=== PATIENT | female | born 1985 | race African-American/Black ===

== ENCOUNTER 2017-11-21 01:25 | Emergency (ER) | payer MEDICAID ==
[~2017-11-21] VITALS: Ht 170.2 cm; Wt 68.9 kg
[~2017-11-21 01:25] MED LIST: NKM; NORCO 5-325 TA1 EACH ORAL; ONDANSETRON ODT4 MG ORAL; PENICILLIN V P500 MG PO; RANITIDINE HCL150 MG ORAL; ULTRAM50 MG ORAL; ZANTAC150 MG ORAL; ZITHROMAX250 MG ORAL; ZOFRAN ODT4 MG ORAL
[2017-11-21 01:40] VITALS: BP 128/88
[2017-11-21] MEDS ORDERED: KEFLEX500 MG ORAL (01:58)
[2017-11-21 02:12] VITALS: BP 128/88
--- NOTE | 2017-11-22 06:45 | Emergency Room Report ---
History of Present Illness General Chief Complaint: Back Pain-No Injury Source: Patient Present Illness HPI 32-year-old male presents ED for evaluation. Patient is burning sensation to her upper back x2 days. States there are "pinworms" crawling out of her back. Pain is burning, 8/10, nonradiating. Denies any flank pain. Denies any dysuria or hematuria. Denies any nausea or vomiting. No other aggravating or relieving factors. Denies any other assocatied symptoms Allergies: Coded Allergies: No Known Allergies (Unverified , 07/08/13) Patient History Past Medical History: GERD Past Surgical History: none Pertinent Family History: none Social History: Denies: smoking, alcohol use, drug use Last Menstrual Period: oct 30 Now: No : 3 Para: 2 Immunizations: UTD Reviewed Nursing Documentation: PMH: Agreed, PSxH: Agreed Nursing Documentation-PMH Hx Cardiac Problems: Yes - HEART MURMUR Hx Gastrointestinal Problems: Yes - Gastritis Review of Systems All Other Systems: negative except mentioned in HPI Physical Exam Vital Signs Date Time Temp Pulse Resp B/P (MAP) Pulse Ox O2 Delivery O2 Flow Rate FiO2 11/21/17 01:31 98.0 95 18 128/88 98 Room Air 98.1 Sp02 EP Interpretation: reviewed, normal General Appearance: no apparent distress, alert, GCS 15, non-toxic Head: normocephalic Eyes: bilateral eye normal inspection, bilateral eye PERRL ENT: normal ENT inspection Neck: normal inspection Respiratory: normal inspection Cardiovascular #1: normal inspection Gastrointestinal: normal inspection Rectal: deferred Genitourinary: no CVA tenderness Musculoskeletal: normal inspection Neurologic: alert, oriented x3, responsive, motor strength/tone normal, sensory intact, speech normal Psychiatric: judgement/insight normal, memory normal, no suicidal/homicidal ideation, anxious Skin: rash - erythema/induration to mid upper back Lymphatic: normal inspection Medical Decision Making Diagnostic Impression: Primary Impression: Cellulitis Qualified Codes: L03.90 - Cellulitis, unspecified ER Course Hospital Course 32-year-old female presents to ED with redness, pain to back Differential diagnoses include: Cellulitis, dermatitis, insect bite, abscess Clinical course Patient placed on stretcher. After initial history, physical exam reveals a female in no acute distress. On exam there is a site for mild erythema and induration to the mid upper back. There is no fluctuance. There is no tenderness. I asked patient why she believes there are pinworms in her back. She says "I don't know I just looked it up on my phone". I do believe there is a psychiatric component to patient's symptoms. However given the induration and erythema renal treat as cellulitis and prescribed antibiotics Diagnosis - cellulitis stable and discharged to home with prescription for Keflex. Instructed to followup with PMD. Instructed return to ED if symptoms recur or worsen Last Vital Signs Date Time Temp Pulse Resp B/P (MAP) Pulse Ox O2 Delivery O2 Flow Rate FiO2 11/21/17 02:12 98.1 18 128/88 98 Room Air 98.1 11/21/17 01:31 95 Status: improved Disposition: HOME, SELF-CARE Condition: Stable Scripts Cephalexin* (KEFLEX*) 500 Mg Capsule 500 MG ORAL Q6H, #28 CAP 0 Refills Prov: LUCY CASAS M.D. 11/21/17 Referrals: [facility],REFERRING (PCP) Patient Instructions: Insect Bite, [id number] LUCY CASAS M.D. Nov 22, 2017 06:45
== END 2017-11-21 02:11 | disposition home or self-care (01) ==
LOC: EMR 02:06
DX: L03.90 Cellulitis, unspecified (principal); R01.1 Cardiac murmur, unspecified; K21.9 Gastro-esophageal reflux disease without esophagitis
CPT/HCPCS: 99283

== ENCOUNTER 2017-12-14 11:10 | Emergency (ER) | payer MEDICAID ==
[~2017-12-14] VITALS: Ht 172.7 cm; Wt 52.2 kg
[~2017-12-14 11:10] MED LIST changes: +KEFLEX500 MG ORAL
[2017-12-14 11:44] VITALS: BP 111/89
[2017-12-14 12:49] LABS: ANION GAP 5 mmol/L (5-15); BLOOD UREA NITROGEN 17 mg/dL (7-18); CALCIUM 9.7 MG/DL (8.5-10.1); CARBON DIOXIDE 38 MMOL/L (21-32); CHLORIDE 93 MMOL/L (98-107); CREATININE 1.1 MG/DL (0.55-1.30); POTASSIUM 3.8 MMOL/L (3.5-5.1); SODIUM 136 MMOL/L (136-145)
[2017-12-14 12:53] LABS: ALANINE AMINOTRANSFERASE 15 U/L (12-78); ALBUMIN 3.5 G/DL (3.4-5.0); ALBUMIN/GLOBULIN RATIO 0.7 (1.0-2.7); ALKALINE PHOSPHATASE 99 U/L (46-116); ASPARTATE AMINO TRANSFERASE 15 U/L (15-37); BILIRUBIN,TOTAL 0.7 MG/DL (0.2-1.0)
[2017-12-14 13:01] LABS: BASOPHILS % (AUTO) 1.7 % (0.0-2.0); EOSINOPHILS % (AUTO) 0.2 % (0.0-3.0); HEMATOCRIT 48.1 % (37.0-47.0); HEMOGLOBIN 15.8 G/DL (12.0-16.0); LYMPHOCYTES % (AUTO) 24.4 % (20.0-45.0); MEAN CORPUSCULAR VOLUME 89 FL (80-99); MONOCYTES % (AUTO) 6.4 % (1.0-10.0); NEUTROPHILS % (AUTO) 67.3 % (45.0-75.0); PLATELET COUNT 314 K/UL (150-450); RED BLOOD COUNT 5.44 M/UL (4.20-5.40); RED CELL DISTRIBUTION WIDTH 12.6 % (11.6-14.8); WHITE BLOOD COUNT 6.1 K/UL (4.8-10.8)
[2017-12-14 13:45] LABS: APPEARANCE,URINE CLOUDY; BILIRUBIN, URINE NEGATIVE (NEGATIVE); GLUCOSE, URINE (UA) NEGATIVE (NEGATIVE); KETONES,URINE 4+ (NEGATIVE); LEUKOCYTE ESTERASE ,URINE 3+ (NEGATIVE); NITRITE,URINE NEGATIVE (NEGATIVE); PH,URINE 7 (4.5-8.0); PROTEIN,URINE 2+ (NEGATIVE); UROBILINOGEN,URINE 4 MG/DL (0.0-1.0)
--- NOTE | 2017-12-14 13:46 | Emergency Room Report ---
History of Present Illness General Chief Complaint: Vomiting Source: Patient Present Illness [facility] The patient presents with vomiting for 5 days. She has weakness at this time. She denies any blood hematemesis or coffee grounds. She felt feverish but no documented temperature. She denies any diarrhea, melena or hematochezia. The patient denies dysuria. She is not taking any medication. She does not believe she is at this time. She has a h/o gastritis. This feels somewhat like that. Pain rated 5-8/10, burning, epigastric, not radiating. Not in RUQ. No chest pain, cough, extremity pain. Allergies: Coded Allergies: No Known Allergies (Unverified , 07/08/13) Patient History Past Medical History: see triage record Past Surgical History: other - ectopic Social History: Denies: alcohol use Social History Narrative with sig other, has child Last Menstrual Period: last month Reviewed Nursing Documentation: PMH: Agreed, PSxH: Agreed Nursing Documentation-PMH Hx Cardiac Problems: Yes - HEART MURMUR Hx Gastrointestinal Problems: Yes - Gastritis Review of Systems All Other Systems: negative except mentioned in HPI Physical Exam Vital Signs Date Time Temp Pulse Resp B/P (MAP) Pulse Ox O2 Delivery O2 Flow Rate FiO2 12/14/17 11:14 97.9 110 16 116/87 99 Room Air 97.9 Sp02 EP Interpretation: reviewed, normal General Appearance: no apparent distress, GCS 15, thin Head: normocephalic Eyes: bilateral eye normal inspection, bilateral eye PERRL ENT: dry mucus membranes Neck: supple Respiratory: lungs clear, normal breath sounds Cardiovascular #1: regular rate, rhythm Cardiovascular #2: 2+ radial (R) Gastrointestinal: normal inspection, normal bowel sounds, no mass, non- distended, no guarding, no rebound, tenderness - Epigastric pain Musculoskeletal: back normal, gait/station normal, normal range of motion Neurologic: alert, oriented x3, grossly normal Psychiatric: mood/affect normal Skin: normal inspection, warm/dry Medical Decision Making Diagnostic Impression: Primary Impression: Acute pancreatitis Qualified Codes: K85.90 - Acute pancreatitis without necrosis or infection, unspecified Additional Impressions: Dehydration Contraction alkalosis Substance abuse AMA ER Course Patient presents with vomiting and epigastric pain. Differential includes gastritis, gastroenteritis, pancreatitis, peptic ulcer disease, gallstones amongst others. The patient will be evaluated with laboratory. The patient will be treated with IV hydration, Pepcid, and Zofran. Labs are significant for elevated lipase and bicarbonate. White count is normal. Patient has pyuria and antibiotics are begun. She is improved however still needs IV hydration and evaluation of the pancreatitis. Abdomen is still soft. She has been sleeping. Patient was discussed with Dr. Herrera. She initially refused to go to [facility]. She states that her physician is at [facility]. Discussing risks of , she decided to be transferred to [facility] and to continue treatment. Patient improved with treatment. (Tox screen late return.) Apparently after I left the department, she signed out AMA. Laboratory Tests Test 12/14/17 12:20 12/14/17 13:11 White Blood Count 6.1 K/UL (4.8-10.8) Red Blood Count 5.44 M/UL (4.20-5.40) H Hemoglobin 15.8 G/DL (12.0-16.0) Hematocrit 48.1 % (37.0-47.0) H Mean Corpuscular Volume 89 FL (80-99) Mean Corpuscular Hemoglobin 29.1 PG (27.0-31.0) Mean Corpuscular Hemoglobin Concent 32.9 G/DL (32.0-36.0) Red Cell Distribution Width 12.6 % (11.6-14.8) Platelet Count 314 K/UL (150-450) Mean Platelet Volume 7.7 FL (6.5-10.1) Neutrophils (%) (Auto) 67.3 % (45.0-75.0) Lymphocytes (%) (Auto) 24.4 % (20.0-45.0) Monocytes (%) (Auto) 6.4 % (1.0-10.0) Eosinophils (%) (Auto) 0.2 % (0.0-3.0) Basophils (%) (Auto) 1.7 % (0.0-2.0) Prothrombin Time 10.7 SEC (9.30-11.50) Prothrombin Time INR 1.0 (0.9-1.1) PTT 29 SEC (23-33) Sodium Level 136 MMOL/L (136-145) Potassium Level 3.8 MMOL/L (3.5-5.1) Chloride Level 93 MMOL/L (98-107) L Carbon Dioxide Level 38 MMOL/L (21-32) H Anion Gap 5 mmol/L (5-15) Blood Urea Nitrogen 17 mg/dL (7-18) Creatinine 1.1 MG/DL (0.55-1.30) Estimate Glomerular Filtration Rate > 60 mL/min (>60) Glucose Level 115 MG/DL (74-106) H Calcium Level 9.7 MG/DL (8.5-10.1) Total Bilirubin 0.7 MG/DL (0.2-1.0) Aspartate Amino Transferase (AST) 15 U/L (15-37) Alanine Aminotransferase (ALT) 15 U/L (12-78) Alkaline Phosphatase 99 U/L (46-116) Total Protein 8.3 G/DL (6.4-8.2) H Albumin 3.5 G/DL (3.4-5.0) Globulin 4.8 g/dL Albumin/Globulin Ratio 0.7 (1.0-2.7) L Lipase 647 U/L (73-393) H Urine Color Yellow Urine Appearance Cloudy Urine pH 7 (4.5-8.0) Urine Specific [place] 1.015 (1.005-1.035) Urine Protein 2+ (NEGATIVE) H Urine Glucose (UA) Negative (NEGATIVE) Urine Ketones 4+ (NEGATIVE) H Urine Occult Blood 1+ (NEGATIVE) H Urine Nitrite Negative (NEGATIVE) Urine Bilirubin Negative (NEGATIVE) Urine Urobilinogen 4 MG/DL (0.0-1.0) H Urine Leukocyte Esterase 3+ (NEGATIVE) H Urine RBC 2-4 /HPF (0 - 2) H Urine WBC Tntc /HPF (0 - 2) H Urine Squamous Epithelial Cells Many /LPF (NONE/OCC) H Urine Bacteria Moderate /HPF (NONE) H Urine HCG, Qualitative Negative Urine Opiates Screen Negative (NEGATIVE) Urine Barbiturates Screen Negative (NEGATIVE) Phencyclidine (PCP) Screen Negative (NEGATIVE) Urine Amphetamines Screen Positive (NEGATIVE) H Urine Benzodiazepines Screen Negative (NEGATIVE) Urine Cocaine Screen Negative (NEGATIVE) Urine Marijuana (THC) Screen Negative (NEGATIVE) Last Vital Signs Date Time Temp Pulse Resp B/P (MAP) Pulse Ox O2 Delivery O2 Flow Rate FiO2 12/14/17 18:19 97.9 88 14 111/89 100 Room Air 97.9 Status: improved Disposition: AGAINST MEDICAL ADVICE Condition: Serious - Stable for transfer Referrals: [facility],REFERRING (PCP) Nasir Rosales M.D. Dec 14, 2017 13:46
[2017-12-14 13:51] LABS: COLOR,URINE YELLOW
[2017-12-14] MEDS ORDERED: cefTRIAXone 1 GM in NS 55 ML IVPB ONE (14:15)
[2017-12-14 18:19] VITALS: BP 111/89
== END 2017-12-14 18:16 | disposition other institution (70) ==
LOC: EMR 12:15
DX: K85.90 Acute pancreatitis without necrosis or infection, unspecified (principal); E86.0 Dehydration; E87.3 Alkalosis; F19.10 Other psychoactive substance abuse, uncomplicated
CPT/HCPCS: 36415; 80053; 80307; 81003; 81025; 83690; 85025; 85610; 85730; 87086; 96361; 96374; 96375; 99284; J0696; J2405; S0028

== ENCOUNTER 2017-12-18 13:00 | Emergency (ER) | payer MEDICAID ==
[~2017-12-18] VITALS: Ht 172.7 cm; Wt 59.0 kg
--- NOTE | 2017-12-18 13:30 | Emergency Room Report ---
History of Present Illness General Chief Complaint: Pain Source: Patient, Medical Record (TANISHA KERR M.D.) Present Illness HPI 32-year-old female presents with right-sided burning pain for 4 days. States cold air makes it worse, he or hot water improved the symptoms. Feels like "it' s my nerve pain." No associated nausea, vomiting, diarrhea. No change in urine or stool color. No history of gallbladder disease. Endorses no BM for 3-4 days Patient was here 2 days ago had elevated lipase on labs however left AMA before transfer to [facility] for admission for pancreatitis. Patient denies EtOH, history of gallstones. Smoke cigarettes, denies other drug use. No other previous abdominal or pelvic surgery. (TANISHA KERR M.D.) Allergies: Coded Allergies: No Known Allergies (Unverified , 07/08/13) Patient History Past Medical History: none Past Surgical History: none Pertinent Family History: none Social History: Reports: smoking Last Menstrual Period: 11/25/17 Now: No Immunizations: UTD Reviewed Nursing Documentation: PMH: Agreed, PSxH: Agreed (TANISHA KERR M.D.) Nursing Documentation-PMH Hx Cardiac Problems: Yes - HEART MURMUR Hx Gastrointestinal Problems: Yes - Gastritis (TANISHA KERR M.D.) Review of Systems All Other Systems: negative except mentioned in HPI (TANISHA KERR M.D.) Physical Exam Vital Signs Date Time Temp Pulse Resp B/P (MAP) Pulse Ox O2 Delivery O2 Flow Rate FiO2 12/18/17 13:08 98.0 92 18 132/84 98 Room Air 98.1 Sp02 EP Interpretation: reviewed, normal General Appearance: normal inspection, well appearing, no apparent distress, alert, GCS 15, non-toxic Head: normocephalic, atraumatic Eyes: bilateral eye PERRL, bilateral eye EOMI ENT: normal ENT inspection, hearing grossly normal, normal pharynx, no angioedema, normal voice, TMs + canals normal, uvula midline, moist mucus membranes Neck: normal inspection, full range of motion, supple, thyroid normal, no meningismus, no bony tend Respiratory: normal inspection, lungs clear, normal breath sounds, no rhonchi, no respiratory distress, no retraction, no accessory muscle use, no wheezing, speaking full sentences Cardiovascular #1: regular rate, rhythm, no edema, no JVD, normal capillary refill Gastrointestinal: normal inspection, normal bowel sounds, soft, no mass, no peritonitis, non-distended, no guarding, no hernia, no pulsatile mass, other - mild epigastric ttp. Multiple excoriations and calamine lotion applied to right side of abdomen/chest Genitourinary: no CVA tenderness Musculoskeletal: normal inspection, back normal, normal range of motion, no calf tenderness, pelvis stable, Uzma's Sign negative Neurologic: normal inspection, alert, oriented x3, responsive, technical sales support manager III-XII nml as tested, motor strength/tone normal, cerebellar normal, normal gait, speech normal Psychiatric: normal inspection, judgement/insight normal, mood/affect normal, no suicidal/homicidal ideation, no delusions Skin: normal inspection, normal color, no rash Lymphatic: normal inspection, no adenopathy (TANISHA KERR M.D.) Medical Decision Making Diagnostic Impression: Primary Impression: abdominal pain Additional Impressions: SBO (small bowel obstruction) Trichomonal infection ER Course VSS, afebrile Mild epigastric abd pain Labs from 2 days ago show elevated lipase, however other LFTs are normal Urine was grossly infected, U tox positive for meth Labs, CT pending at time of endorsement to Dr Steiner at 230pm (TANISHA KERR M.D.) ER Course CAT scan report noting small bowel obstruction Patient states that she has not had a bowel movement in 4 days however is passing some gas yesterday Patient's vitals are normal, stable for transfer to outside hospital due to insurance purposes I gave signout to Dr. Quiros, who has accepted patient for transfer Pt passed time limit of two hours, will admit here to [place] Dr Rainey contacted from [facility] Dr Murray [facility] called said there was a bed for xfer Patient pending transfer to other facility, however patient became very angry. said she wants to eat. I calmly told her that I do not advise that as she has an SBO I told her that her condition could have serious morbidity if it worsened, she understands but still wants to eat states "I have been eating for the last few days and I have been fine" Patient continues to be very agitated/angry She storemd out of the emergency room, and left AMA (she previously left AMA few days ago) Laboratory Tests Test 12/18/17 13:45 12/18/17 13:54 Urine Color Yellow Urine Appearance Slightly cloudy Urine pH 8 (4.5-8.0) Urine Specific [place] 1.010 (1.005-1.035) Urine Protein 1+ (NEGATIVE) H Urine Glucose (UA) Negative (NEGATIVE) Urine Ketones 1+ (NEGATIVE) H Urine Occult Blood 1+ (NEGATIVE) H Urine Nitrite Negative (NEGATIVE) Urine Bilirubin Negative (NEGATIVE) Urine Urobilinogen 8 MG/DL (0.0-1.0) H Urine Leukocyte Esterase 3+ (NEGATIVE) H Urine RBC 2-4 /HPF (0 - 2) H Urine WBC 10-15 /HPF (0 - 2) H Urine Squamous Epithelial Cells Moderate /LPF (NONE/OCC) H Urine Bacteria Few /HPF (NONE) Urine Trichomonas Few /HPF (NONE) H White Blood Count 8.0 K/UL (4.8-10.8) Red Blood Count 4.51 M/UL (4.20-5.40) Hemoglobin 13.1 G/DL (12.0-16.0) Hematocrit 39.8 % (37.0-47.0) Mean Corpuscular Volume 88 FL (80-99) Mean Corpuscular Hemoglobin 29.1 PG (27.0-31.0) Mean Corpuscular Hemoglobin Concent 32.9 G/DL (32.0-36.0) Red Cell Distribution Width 12.8 % (11.6-14.8) Platelet Count 367 K/UL (150-450) Mean Platelet Volume 6.7 FL (6.5-10.1) Neutrophils (%) (Auto) 67.8 % (45.0-75.0) Lymphocytes (%) (Auto) 23.4 % (20.0-45.0) Monocytes (%) (Auto) 6.6 % (1.0-10.0) Eosinophils (%) (Auto) 0.5 % (0.0-3.0) Basophils (%) (Auto) 1.8 % (0.0-2.0) Sodium Level 134 MMOL/L (136-145) L Potassium Level 3.5 MMOL/L (3.5-5.1) Chloride Level 97 MMOL/L (98-107) L Carbon Dioxide Level 34 MMOL/L (21-32) H Anion Gap 3 mmol/L (5-15) L Blood Urea Nitrogen 8 mg/dL (7-18) Creatinine 0.9 MG/DL (0.55-1.30) Estimate Glomerular Filtration Rate > 60 mL/min (>60) Glucose Level 101 MG/DL (74-106) Calcium Level 9.0 MG/DL (8.5-10.1) Total Bilirubin 0.7 MG/DL (0.2-1.0) Aspartate Amino Transferase (AST) 14 U/L (15-37) L Alanine Aminotransferase (ALT) 13 U/L (12-78) Alkaline Phosphatase 94 U/L (46-116) Total Protein 7.6 G/DL (6.4-8.2) Albumin 3.1 G/DL (3.4-5.0) L Globulin 4.5 g/dL Albumin/Globulin Ratio 0.7 (1.0-2.7) L Lipase 92 U/L (73-393) (Jaxon Steiner M.D.) CT/MRI/US Diagnostic Results CT/MRI/US Diagnostic Results : Imaging Test Ordered: ct abdo pelvis Impression Findings: Evaluation of the GI tract is limited in the absence of enteric contrast administration. There is a small amount of free pelvic fluid. Most of the small bowel is somewhat prominent to borderline dilated, diffusely fluid-filled. However, some nondilated small bowel loops are seen in the pelvis. No definite transition point is demonstrated.. The appendix is not identified, but no findings to suggest acute appendicitis are evident. No free intraperitoneal air. The gastric wall is diffusely thickened, but this is likely an artifact of under distention. The liver, gallbladder, bile ducts, pancreas, spleen, adrenals, kidneys are unremarkable. No pelvic mass or adenopathy. Uterus demonstrates a small cyst in the myometrium. Myometrium is somewhat prominent and diffusely heterogeneous. No adnexal mass. The included lung bases are clear. The bones are unremarkable. Impression: Limited assessment of the GI tract, given absence of enteric contrast administration Prominent fluid-filled small bowel loops. Suspect on the basis of mild enteritis changes or ileus however, the presence of some nondilated small bowel loops does raise concern for early/partial small bowel obstruction. Small amount of free pelvic fluid, most likely physiologic Findings discussed by phone with Dr. Steiner in the emergency room at the time of interpretation (Jaxon Steiner M.D.) Last Vital Signs Date Time Temp Pulse Resp B/P (MAP) Pulse Ox O2 Delivery O2 Flow Rate FiO2 12/18/17 13:08 98.0 92 18 132/84 98 Room Air 98.1 Status: improved (TANISHA KERR M.D.) Disposition: AGAINST MEDICAL ADVICE Condition: Serious TANISHA KERR M.D. Dec 18, 2017 13:30 Jaxon Steiner M.D. Dec 18, 2017 15:40
[2017-12-18 14:04] LABS: BASOPHILS % (AUTO) 1.8 % (0.0-2.0); EOSINOPHILS % (AUTO) 0.5 % (0.0-3.0); HEMATOCRIT 39.8 % (37.0-47.0); HEMOGLOBIN 13.1 G/DL (12.0-16.0); LYMPHOCYTES % (AUTO) 23.4 % (20.0-45.0); MEAN CORPUSCULAR VOLUME 88 FL (80-99); MONOCYTES % (AUTO) 6.6 % (1.0-10.0); NEUTROPHILS % (AUTO) 67.8 % (45.0-75.0); PLATELET COUNT 367 K/UL (150-450); RED BLOOD COUNT 4.51 M/UL (4.20-5.40); RED CELL DISTRIBUTION WIDTH 12.8 % (11.6-14.8)
[2017-12-18 14:09] VITALS: BP 132/84
[2017-12-18] MEDS: Ketorolac 30mg Inj IV ONE (14:11)
[2017-12-18 14:18] LABS: ANION GAP 3 mmol/L (5-15); BLOOD UREA NITROGEN 8 mg/dL (7-18); CARBON DIOXIDE 34 MMOL/L (21-32); CHLORIDE 97 MMOL/L (98-107); CREATININE 0.9 MG/DL (0.55-1.30); POTASSIUM 3.5 MMOL/L (3.5-5.1); SODIUM 134 MMOL/L (136-145)
[2017-12-18 14:22] LABS: ALANINE AMINOTRANSFERASE 13 U/L (12-78); ALBUMIN 3.1 G/DL (3.4-5.0); ALBUMIN/GLOBULIN RATIO 0.7 (1.0-2.7); ALKALINE PHOSPHATASE 94 U/L (46-116); ASPARTATE AMINO TRANSFERASE 14 U/L (15-37); BILIRUBIN,TOTAL 0.7 MG/DL (0.2-1.0)
[2017-12-18 14:31] LABS: APPEARANCE,URINE SLIGHTLY CLOUDY; BILIRUBIN, URINE NEGATIVE (NEGATIVE); GLUCOSE, URINE (UA) NEGATIVE (NEGATIVE); KETONES,URINE 1+ (NEGATIVE); LEUKOCYTE ESTERASE ,URINE 3+ (NEGATIVE); NITRITE,URINE NEGATIVE (NEGATIVE); PH,URINE 8 (4.5-8.0); PROTEIN,URINE 1+ (NEGATIVE); UROBILINOGEN,URINE 8 MG/DL (0.0-1.0)
[2017-12-18 14:39] LABS: COLOR,URINE YELLOW
--- NOTE | 2017-12-18 15:00 | Diagnostic Imaging Report ---
Clinical Indication: Abdominal pain Technique: No oral contrast utilized, per emergency room physician request IV administration nonionic contrast. Venous phase spiral acquisition obtained through the abdomen and pelvis. Multiplanar reconstructions were generated. Total dose length product 670.63 mGycm. CTDIvol(s) 13.21 mGy. Dose reduction achieved using automated exposure control Comparison: none Findings: Evaluation of the GI tract is limited in the absence of enteric contrast administration. There is a small amount of free pelvic fluid. Most of the small bowel is somewhat prominent to borderline dilated, diffusely fluid-filled. However, some nondilated small bowel loops are seen in the pelvis. No definite transition point is demonstrated.. The appendix is not identified, but no findings to suggest acute appendicitis are evident. No free intraperitoneal air. The gastric wall is diffusely thickened, but this is likely an artifact of under distention. The liver, gallbladder, bile ducts, pancreas, spleen, adrenals, kidneys are unremarkable. No pelvic mass or adenopathy. Uterus demonstrates a small cyst in the myometrium. Myometrium is somewhat prominent and diffusely heterogeneous. No adnexal mass. The included lung bases are clear. The bones are unremarkable. Impression: Limited assessment of the GI tract, given absence of enteric contrast administration Prominent fluid-filled small bowel loops. Suspect on the basis of mild enteritis changes or ileus however, the presence of some nondilated small bowel loops does raise concern for early/partial small bowel obstruction. Small amount of free pelvic fluid, most likely physiologic Findings discussed by phone with Dr. Steiner in the emergency room at the time of interpretation The CT scanner at [facility] is accredited by the [employer] and the scans are performed using protocols designed to limit radiation exposure to as low as reasonably achievable to attain images of sufficient resolution adequate for diagnostic evaluation.
[2017-12-18] MEDS: Morphine Sulfate 4mg/ml Inj IVP ONE (16:13)
[2017-12-18 16:52] VITALS: BP 135/80
[2017-12-18 19:30] VITALS: BP 135/80
--- NOTE | 2017-12-19 15:45 | Consultation ---
DATE OF CONSULTATION: 12/19/2017 INTERNAL MEDICINE CONSULTATION CONSULTING PHYSICIAN: Milan Murray M.D. HISTORY OF PRESENT ILLNESS: This is a 32-year-old female, who was seen yesterday in the emergency room. I was asked to evaluate the patient for admission. The patient presented with right-sided burning pain for 4 days. She had lower abdominal pain and she reports that she has not had a bowel movement for several days. The patient had been seen in the past here, but had left AMA. There is no history of alcohol use. The patient smokes tobacco. PAST MEDICAL HISTORY: Notable for cardiac murmur and gastritis. HOME MEDICATION: Reviewed and reconciled. REVIEW OF SYSTEMS: The patient denies any headaches, hematemesis, or melena. PHYSICAL EXAMINATION: GENERAL: Reveals a 32-year-old female. HEENT: Unremarkable. . ABDOMEN: Soft. EXTREMITIES: There is no edema. NEUROLOGIC: Nonfocal. . LABORATORY DATA: Lab testing from several days ago showed liver lipase. There was evidence of urinary tract infection and there was also urine toxicology for methamphetamines. CT of the abdomen was obtained, which showed small bowel obstruction. At this point, I evaluated the patient and notes that she is stable for transfer. I have contacted the on-call case hardener who would be arranging a bed for the patient at an outside facility which is contracted with our hospital. Milan Murray M.D. DR: KAMAR JOB#: [id number] CC:
== END 2017-12-18 19:33 | disposition left against medical advice (07) ==
LOC: EMR 15:00
DX: K56.609 Unspecified intestinal obstruction, unspecified as to partial versus complete obstruction (principal); A59.9 Trichomoniasis, unspecified; F17.200 Nicotine dependence, unspecified, uncomplicated; Z87.19 Personal history of other diseases of the digestive system
CPT/HCPCS: 36415; 74177; 80053; 81003; 83690; 85025; 87086; 96374; 96375; 99284; J1885; J2270; Q9967

== ENCOUNTER 2017-12-24 05:26 | Emergency (ER) | payer MEDICAID ==
[~2017-12-24] VITALS: Ht 172.7 cm; Wt 72.6 kg
[2017-12-24] MEDS ORDERED: NKM (05:29)
[2017-12-24 05:44] VITALS: BP 141/75
[2017-12-24] MEDS ORDERED: Morphine Sulfate 4mg/ml Inj IVP ONE ×2 (05:45→10:15)
--- NOTE | 2017-12-24 06:01 | Emergency Room Report ---
History of Present Illness General Chief Complaint: Abdominal Pain Source: Medical Record (LUCY CASAS M.D.) Present Illness HPI 32-year-old female presents ED for evaluation. Patient brought in by EMS complaining of abdominal pain for the last 2 hours, sharp, 8 out of 10, nonradiating. Denies nausea or vomiting. States she was here last week for similar pain. Was told that she had a "blockage" and was to be admitted. Patient left AMA because she did not want to go to that particular hospital. Patient states that was a mistake and she should not have left. The pain has not resolved since. Last bowel movement was several weeks ago. Denies chest pain or shortness of breath. No other aggravating relieving factors. Denies any other associated symptoms (LUCY CASAS M.D.) Allergies: Coded Allergies: No Known Allergies (Unverified , 07/08/13) Patient History Past Medical History: GERD Past Surgical History: none Pertinent Family History: none Social History: Denies: smoking, alcohol use, drug use Last Menstrual Period: 12/22/17 Now: No : 3 Para: 1 Immunizations: UTD Reviewed Nursing Documentation: PMH: Agreed, PSxH: Agreed (LUCY CASAS M.D.) Nursing Documentation-PMH Hx Cardiac Problems: Yes - HEART MURMUR Hx Gastrointestinal Problems: Yes - Gastritis (LUCY CASAS M.D.) Review of Systems All Other Systems: negative except mentioned in HPI (LUCY CASAS M.D.) Physical Exam Vital Signs Date Time Temp Pulse Resp B/P (MAP) Pulse Ox O2 Delivery O2 Flow Rate FiO2 12/24/17 05:26 97.5 124 14 141/75 97 Room Air 97.5 Sp02 EP Interpretation: reviewed, normal General Appearance: no apparent distress, alert, GCS 15, non-toxic Head: normocephalic, atraumatic Eyes: bilateral eye normal inspection, bilateral eye PERRL ENT: hearing grossly normal, normal pharynx, no angioedema, normal voice Neck: full range of motion, supple/symm/no masses Respiratory: chest non-tender, lungs clear, normal breath sounds, speaking full sentences Cardiovascular #1: regular rate, rhythm, no edema Cardiovascular #2: 2+ carotid (R), 2+ carotid (L), 2+ radial (R), 2+ radial (L) , 2+ dorsalis pedis (R), 2+ dorsalis pedis (L) Gastrointestinal: normal bowel sounds, soft, non-distended, no guarding, no rebound, tenderness Rectal: deferred Genitourinary: normal inspection, no CVA tenderness Musculoskeletal: back normal, gait/station normal, normal range of motion, non- tender Neurologic: alert, oriented x3, responsive, motor strength/tone normal, sensory intact, speech normal Psychiatric: judgement/insight normal, memory normal, mood/affect normal, no suicidal/homicidal ideation Reflexes: 3+ bicep (R), 3+ bicep (L), 3+ tricep (R), 3+ tricep (L), 3+ knee (R) , 3+ knee (L) Skin: normal color, no rash, warm/dry, well hydrated Lymphatic: no adenopathy (LUCY CASAS M.D.) Medical Decision Making Diagnostic Impression: Primary Impression: abdominal pain Additional Impression: Gastritis ER Course Patient currently stable at bedside Patient states that she has a history of gastric ulcer, pain has been controlled with morphine, Pepcid, Zofran CT performed, may be partial small bowel obstruction versus anatomic abnormality that is chronic, there is distal contrast in the colon. Patient continues to have some pain. Will admit to [facility] Patient will be transferred to outside hospital, [facility], due to insurance purposes. I spoke with who has accepted patient for transfer (Jaxon Steiner M.D.) ER Course Patient signed out to me by Dr Steiner Suspected partial SBO, gastritis Already endorsed for transfer Multiple visits here and subsequent elopement in the last few weeks Patient asked for tylenol/motrin and was given, but then started loudly yelling , cursing. I spent considerable time trying to diffuse the situation even after patient told me to "suck my motherfucking asshole." I explained to patient her diagnosis multiple times and that its important for her to be NPO in case of surgery She somehow got someone to bring her a large coffee with whip cream and a large juice She blames [facility] for being transferred on previous visits to hospital far from her house. States she was happy that she was being transferred today to somewhere closer. She then stated she didnt want tylenol and was given IV morphine Patient then apologized for her behavior and appeared more calm 10 minutes later, after getting additional morphine, patient asked nurse to remove IV, states she doesn't want to stay here, admits she's one to go outside and smoke a cigarette and "get stuck from a car" and "talk to my outside ". Told patient we can't allow her to go outside with IV and come back in. Patient very angry walking up and down the hallway, disrupting the ER. Disrupting additional patients in the ER. States she "wants to leave" and "is tired of waiting for ambulance" however EMS transport is here to take her. Patient verbally threatened to harm me and staff multiple times. [employer] was called. Patient had IV removed, refused to sign AMA paperwork Hospital security saw patient get in someone's car and drive away (TANISHA KERR M.D.) CT/MRI/US Diagnostic Results CT/MRI/US Diagnostic Results : Imaging Test Ordered: CT ABDO PELVIS Impression Findings: The stomach is well distended by contrast. The gastric wall is definitely edematous and thickened. Somewhat prominent nodes are seen in the lesser sac and peripancreatic region, more prominent than on the prior study. Small bowel loops are overall prominent in caliber, with some mildly dilated small bowel in the left upper quadrant with some areas of nondistended small bowel particularly in the pelvis. Contrast is seen to traverse the entirety of the small bowel and reaches the terminal ileum. The ascending colon is mildly distended and fluid-filled. The transverse and proximal descending colon are upper limits of normal in caliber and gas filled with some stool. The distal descending colon tapers to normal caliber or collapsed. There is mostly collapsed of the sigmoid colon with intermittent areas of distention by gas. Caliber changes of the colon are more striking than on the prior exam, and the proximal colon is more distended There are intermittently collapsed small bowel loops in the pelvis adjacent to the cecum and sigmoid, and possibly tethered small bowel loop in the right lower pelvis anterior uterus. There is complex architecture of the sigmoid colon. There is increased free intraperitoneal fluid, both in the pelvis and adjacent to the tip of the liver. No colonic wall thickening, mural gas, small bowel wall thickening, or free intraperitoneal gas demonstrated. The gallbladder demonstrates a gallstone, not definitely evident previously. It is mildly distended but the wall is not thickened. No biliary ductal dilatation. The liver, pancreas, spleen, adrenals, left kidney are unremarkable. A lucency in the upper pole of the right kidney may represent a small cyst or scar. No retroperitoneal or mesenteric mass or adenopathy. No pelvic mass or adenopathy. The included lung bases are clear. The bones are unremarkable. Impression: Marked gastric wall thickening and edema, consistent with gastritis and/or peptic ulcer disease. In retrospect possibly evident previously, thought then to represent artifact of under distention but definitely significantly increased since prior study. New or increasing lesser sac and peripancreatic adenopathy, likely reactive secondary to such Mildly dilated left upper quadrant small bowel loops and intermittently normal caliber and collapsed small bowel loops in the pelvis, does raise the possibility of partial small bowel obstruction. However, reversal of contrast as far distally as the terminal ileum suggested no significant obstructive pathology is present. Complex architecture of the left upper pelvic mesentery and associated small bowel and sigmoid colon. Not clearly evident on previous CT without enteric contrast. Suspect that this is just baseline for this patient, particularly, as mentioned earlier, contrast reaches the terminal ileum suggesting absence of significant obstructive pathology, but the possibility of an unusual internal hernia resulting in mild small bowel and or distal colonic obstruction should be considered. Follow- up abdominal plain radiographs would be useful to confirm continued forward progress of ingested contrast Slightly distended fluid-filled proximal colon, more so than previously, possibly secondary to the above or could indicate diarrhea or mild colitis changes. There is no colon wall thickening, however Increased free intraperitoneal fluid, likely related to the above pathology Cholelithiasis, not clearly evident previously Incidental finding right upper pole renal cyst or scar Findings discussed by phone with Dr. Steiner in the emergency room at the time of interpretation (Jaxon Steiner M.D.) Last Vital Signs Date Time Temp Pulse Resp B/P (MAP) Pulse Ox O2 Delivery O2 Flow Rate FiO2 12/24/17 05:44 97.5 110 14 141/75 97 Room Air 97.5 (LUCY CASAS M.D.) Status: improved (TANISHA KERR M.D.) Disposition: AGAINST MEDICAL ADVICE Condition: Serious LUCY CASAS M.D. Dec 24, 2017 06:01 Jaxon Steiner M.D. Dec 24, 2017 11:25 TANISHA KERR M.D. Dec 24, 2017 16:24
[2017-12-24 06:15] LABS: EOSINOPHILS % (AUTO) 0.6 % (0.0-3.0); HEMATOCRIT 37.3 % (37.0-47.0); HEMOGLOBIN 12.7 G/DL (12.0-16.0); LYMPHOCYTES % (AUTO) 19.2 % (20.0-45.0); MEAN CORPUSCULAR VOLUME 87 FL (80-99); MONOCYTES % (AUTO) 5.9 % (1.0-10.0); NEUTROPHILS % (AUTO) 72.1 % (45.0-75.0); PLATELET COUNT 267 K/UL (150-450); RED BLOOD COUNT 4.29 M/UL (4.20-5.40); RED CELL DISTRIBUTION WIDTH 12.8 % (11.6-14.8); WHITE BLOOD COUNT 8.1 K/UL (4.8-10.8)
[2017-12-24 06:16] LABS: BASOPHILS % (AUTO) 2.1 % (0.0-2.0)
[2017-12-24 06:17] LABS: ANION GAP 4 mmol/L (5-15); BLOOD UREA NITROGEN 14 mg/dL (7-18); CALCIUM 8.9 MG/DL (8.5-10.1); CARBON DIOXIDE 31 MMOL/L (21-32); CHLORIDE 98 MMOL/L (98-107); CREATININE 0.8 MG/DL (0.55-1.30); SODIUM 133 MMOL/L (136-145)
[2017-12-24] MEDS ORDERED: Gastrograffin 30ml ORAL ONE (06:20)
[2017-12-24 06:22] LABS: ALANINE AMINOTRANSFERASE 18 U/L (12-78); ALBUMIN 2.6 G/DL (3.4-5.0); ALBUMIN/GLOBULIN RATIO 0.5 (1.0-2.7); ALKALINE PHOSPHATASE 105 U/L (46-116); ASPARTATE AMINO TRANSFERASE 45 U/L (15-37); BILIRUBIN,TOTAL 0.9 MG/DL (0.2-1.0)
[2017-12-24 07:27] VITALS: BP 124/84
[2017-12-24] MEDS ORDERED: Dicyclomine HCl 10mg/5ml oral soln ORAL ONE (10:45)
[2017-12-24] MEDS ORDERED: Lidocaine 2% Visc 15ml soln ORAL ONE (10:45)
[2017-12-24] MEDS ORDERED: Mylanta II UD 30ml ORAL ONE (10:45)
--- NOTE | 2017-12-24 11:04 | Diagnostic Imaging Report ---
Clinical Indication: Abdominal pain and distention Technique: Patient ingested oral contrast. IV administration nonionic contrast. Venous phase spiral acquisition obtained through the abdomen and pelvis. Multiplanar reconstructions were generated. Total dose length product 650.49 mGycm. CTDIvol(s) 12.1 mGy. Dose reduction achieved using automated exposure control Comparison: 12/18/2017 Findings: The stomach is well distended by contrast. The gastric wall is definitely edematous and thickened. Somewhat prominent nodes are seen in the lesser sac and peripancreatic region, more prominent than on the prior study. Small bowel loops are overall prominent in caliber, with some mildly dilated small bowel in the left upper quadrant with some areas of nondistended small bowel particularly in the pelvis. Contrast is seen to traverse the entirety of the small bowel and reaches the terminal ileum. The ascending colon is mildly distended and fluid-filled. The transverse and proximal descending colon are upper limits of normal in caliber and gas filled with some stool. The distal descending colon tapers to normal caliber or collapsed. There is mostly collapsed of the sigmoid colon with intermittent areas of distention by gas. Caliber changes of the colon are more striking than on the prior exam, and the proximal colon is more distended There are intermittently collapsed small bowel loops in the pelvis adjacent to the cecum and sigmoid, and possibly tethered small bowel loop in the right lower pelvis anterior uterus. There is complex architecture of the sigmoid colon. There is increased free intraperitoneal fluid, both in the pelvis and adjacent to the tip of the liver. No colonic wall thickening, mural gas, small bowel wall thickening, or free intraperitoneal gas demonstrated. The gallbladder demonstrates a gallstone, not definitely evident previously. It is mildly distended but the wall is not thickened. No biliary ductal dilatation. The liver, pancreas, spleen, adrenals, left kidney are unremarkable. A lucency in the upper pole of the right kidney may represent a small cyst or scar. No retroperitoneal or mesenteric mass or adenopathy. No pelvic mass or adenopathy. The included lung bases are clear. The bones are unremarkable. Impression: Marked gastric wall thickening and edema, consistent with gastritis and/or peptic ulcer disease. In retrospect possibly evident previously, thought then to represent artifact of under distention but definitely significantly increased since prior study. New or increasing lesser sac and peripancreatic adenopathy, likely reactive secondary to such Mildly dilated left upper quadrant small bowel loops and intermittently normal caliber and collapsed small bowel loops in the pelvis, does raise the possibility of partial small bowel obstruction. However, reversal of contrast as far distally as the terminal ileum suggested no significant obstructive pathology is present. Complex architecture of the left upper pelvic mesentery and associated small bowel and sigmoid colon. Not clearly evident on previous CT without enteric contrast. Suspect that this is just baseline for this patient, particularly, as mentioned earlier, contrast reaches the terminal ileum suggesting absence of significant obstructive pathology, but the possibility of an unusual internal hernia resulting in mild small bowel and or distal colonic obstruction should be considered. Follow-up abdominal plain radiographs would be useful to confirm continued forward progress of ingested contrast Slightly distended fluid-filled proximal colon, more so than previously, possibly secondary to the above or could indicate diarrhea or mild colitis changes. There is no colon wall thickening, however Increased free intraperitoneal fluid, likely related to the above pathology Cholelithiasis, not clearly evident previously Incidental finding right upper pole renal cyst or scar Findings discussed by phone with Dr. Steiner in the emergency room at the time of interpretation The CT scanner at [facility] is accredited by the [employer] and the scans are performed using protocols designed to limit radiation exposure to as low as reasonably achievable to attain images of sufficient resolution adequate for diagnostic evaluation.
[2017-12-24 11:20] VITALS: BP 121/79
[2017-12-24 12:09] LABS: APPEARANCE,URINE SLIGHTLY CLOUDY; BILIRUBIN, URINE NEGATIVE (NEGATIVE); GLUCOSE, URINE (UA) NEGATIVE (NEGATIVE); KETONES,URINE 2+ (NEGATIVE); LEUKOCYTE ESTERASE ,URINE 2+ (NEGATIVE); NITRITE,URINE NEGATIVE (NEGATIVE); PH,URINE 6.5 (4.5-8.0); PROTEIN,URINE 2+ (NEGATIVE); UROBILINOGEN,URINE 1 MG/DL (0.0-1.0)
[2017-12-24 12:39] LABS: COLOR,URINE YELLOW
[2017-12-24 14:07] VITALS: BP 125/78
[2017-12-24] MEDS ORDERED: Morphine Sulfate 2mg/ml Inj IVP ONE (16:00)
[2017-12-24 16:10] VITALS: BP 125/78
== END 2017-12-24 16:10 | disposition left against medical advice (07) ==
LOC: EDBD 05:26 → EMR 06:07
DX: K29.70 Gastritis, unspecified, without bleeding (principal); K21.9 Gastro-esophageal reflux disease without esophagitis
CPT/HCPCS: 36415; 74177; 80053; 81003; 81025; 83690; 84702; 85025; 96361; 96374; 96375; 99284; J2270; J2405; Q9967; S0028